=== PATIENT | male | born 2000 ===

== ENCOUNTER 2023-02-04 04:01 | Emergency (ER) | payer SELFPAY ==
[~2023-02-04] VITALS: Ht 175.3 cm; Wt 72.7 kg
[2023-02-04 04:06] VITALS: TEMP 97.1
[2023-02-04 05:19] LABS: BASO % 0.3 % (0.0-2.0); EOS % 0.3 % (0.0-4.0); GRAN # 10.1 K/mm3 (1.4-6.5); GRAN % 87.9 % (42.2-75.2); HEMOGLOBIN 17.5 g/dl (13.5-18.0); LYMPH # 0.7 K/mm3 (1.2-3.4); LYMPH % 5.8 % (20.0-51.0); MEAN CELL VOLUME 84 fl (80.0-100.0); MEAN CORPUSCULAR HEMOGLOBIN 30 pg (27-31); MEAN CORPUSCULAR HGB CONC 36 g/dl (33.0-37.0); MEAN PLATELET VOLUME 9.8 fl (7.4-10.4); MONO # 0.6 K/mm3 (0.1-0.6); MONO % 5.4 % (1.7-9.3); PLATELET COUNT 249 K/mm3 (130-400); RED BLOOD COUNT 5.81 M/mm3 (4.20-5.60); REDCELL DISTRIBUTION WIDTH-CV 12.9 % (11.5-14.5)
[2023-02-04 05:22] LABS: COLLECTION METHOD CLEAN CATCH
[2023-02-04 05:32] LABS: URINE APPEARANCE Hazy (CLEAR/HAZY); URINE BLOOD Negative (NEGATIVE); URINE COLOR Yellow (YELLOW); URINE GLUCOSE Negative (NEGATIVE); URINE KETONE 1+ (NEGATIVE); URINE NITRATE Negative (NEGATIVE); URINE PROTEIN(semi-quant) 1+ (NEGATIVE)
[2023-02-04 05:42] LABS: MUCOUS Present (NOT PRESENT); URINE BACTERIA Moderate /hpf (NONE SEEN)
[2023-02-04 05:49] LABS: ALBUMIN 4.5 gm/dL (3.5-5.0); BILIRUBIN,TOTAL 0.9 mg/dL (0.2-1.2); CALCIUM 10.2 mg/dL (8.4-10.2); CREATININE, serum 1.07 mg/dL (0.72-1.25); POTASSIUM 3.7 mmol/L (3.5-4.5); TOTAL PROTEIN 7.9 gm/dL (6.2-8.1)
[2023-02-04] MEDS ORDERED: ZOFRAN ODT4 MG PO (07:16)
[2023-02-04 07:31] VITALS: BP 146/83; PULSE 90
== END 2023-02-04 07:31 | disposition home or self-care (01) ==
LOC: COL.ER 04:01
PROVIDERS: Emergency Medicine
DX: R11.2 Nausea with vomiting, unspecified (principal); Z28.311 Partially vaccinated for COVID-19
CPT/HCPCS: J2405